=== PATIENT | male | born 1975 | race Caucasian/White ===

== ENCOUNTER → 2023-07-30 08:24 | Outpatient (REF) | payer BC, SELFPAY | LOC: DHCBC MAIN 08:24 | PROVIDERS: ATTENDING PHYSICIAN Internal Medicine Cardiovascular Disease; FAMILY PHYSICIAN Nurse Practitioner Family | DX: R00.2 Palpitations (principal); I49.3 Ventricular premature depolarization; R94.31 Abnormal electrocardiogram [ECG] [EKG] | CPT/HCPCS: 93306 ==